=== PATIENT | male | born 1985 | race Caucasian/White ===

== ENCOUNTER 2020-05-16 03:46 | Emergency (ER) | payer BC, MEDICAID ==
[~2020-05-16] VITALS: Ht 182.9 cm; Wt 86.4 kg
[2020-05-16] MEDS ORDERED: ceFAZolin 1GM/D5W- ADD-VANTAGE 50 ML IV ONE (03:55)
[2020-05-16] MEDS ORDERED: TETanus/Pertussis (Acell)/Diphther VAC/PF (Tdap-Adult) 0.5ml syringe IMVAC ONE (03:55)
[2020-05-16] MEDS ORDERED: NO HOME MEDS (04:06)
[2020-05-16] MEDS: LIDOcaine 1% W/epiNEPHrine 1:200,000 10ml vial IJ STA ×2 (04:38→05:30)
[2020-05-16] MEDS ORDERED: morphine 4 MG/ML inj SYRINge IV ONE (04:50)
[2020-05-16 05:02] LABS: BASOPHILS # (AUTO) 0.1 X10'3 (0-0.2); BASOPHILS % (AUTO) 0.6 % (0-1); EOSINOPHILS # (AUTO) 0.3 X10'3 (0-0.9); EOSINOPHILS % (AUTO) 2.6 % (0-6); HEMATOCRIT 43.7 % (42.0-52.0); HEMOGLOBIN 14.6 g/dl (14.0-17.9); LYMPHOCYTES # (AUTO) 2.7 X10'3 (1.1-4.8); LYMPHOCYTES % (AUTO) 27.5 % (21-51); MEAN CORPUSCULAR HEMOGLOBIN 31.4 PG (27.0-31.0); MEAN CORPUSCULAR HGB CONC 33.4 g/dL (33.0-36.5); MEAN CORPUSCULAR VOLUME 94.2 FL (78-98); MONOCYTES # (AUTO) 0.8 X10'3 (0-0.9); MONOCYTES % (AUTO) 8.4 % (2-12); NEUTROPHILS % (AUTO) 60.9 % (42-75); PLATELET COUNT 204 X10'3 (140-440); RED BLOOD COUNT 4.64 X10'6 (4.70-6.10); RED CELL DISTRIBUTION WIDTH 13.4 % (11.5-14.5); WHITE BLOOD COUNT 9.9 X10'3 (4.5-11.0)
[2020-05-16 05:13] LABS: ALANINE AMINOTRANSFERASE 52 U/L (12-78); ALBUMIN 3.7 G/DL (3.4-5.0); ALBUMIN/GLOBULIN RATIO 1.1 (1.1-1.5); ALKALINE PHOSPHATASE 43 IU/L (46-116); ANION GAP 13 (8-16); ASPARTATE AMINO TRANSFERASE 30 U/L (10-37); BILIRUBIN,TOTAL 0.7 MG/DL (0.1-1.0); BLOOD UREA NITROGEN 13 MG/DL (7-18); BUN/CREATININE RATIO 13.5 (5.4-32.0); CALCIUM 8.8 MG/DL (8.5-10.1); CHLORIDE 106 MMOL/L (99-107); CREATININE 0.96 MG/DL (0.60-1.10); GLUCOSE 97 MG/DL (70-104); POTASSIUM 3.2 MMOL/L (3.5-5.1); SODIUM 141 MMOL/L (135-145); eGFR > 90 ML/MIN
[2020-05-16] MEDS ORDERED: potassium Cl 20mEq in NS 1,000 ML IV SCH (05:19)
[2020-05-16] MEDS ORDERED: morphine 2 MG/ML inj. syringe IV PRN ×2 (05:20)
[2020-05-16] MEDS ORDERED: mag hydrox/Alum hydrox/simeth 30ml oral suspension PO PRN (05:20)
[2020-05-16] MEDS ORDERED: magnesium hydroxide 30ml (MOM) UD suspension PO PRN (05:20)
[2020-05-16] MEDS ORDERED: acetaminophen 325mg tablet PO PRN (05:20)
[2020-05-16] MEDS ORDERED: ondansetron/PF 4mg/2ml inj IV PRN (05:20)
--- NOTE | 2020-05-16 05:30 | NUR ---
Dr PATRICIA AT BEDSIDE , TO SEE PATIENT . LACERATION SET UP AT BEDSIDE REQUESTED WITH 3 BOTTLES OF LIDOCAINE ORDERED . 2000 ML OF NS USED TO IRRIAGTED WOUND BY DR PATRICIA HIMSELF AND ADDITIONAL DRERSSING SUPPLIES AT BEDSIDE . PT STATED HE WAS A LITTLE AXIOUS AND DR PATRICIA STATED PT COULD HAVE 1 MG ATIVAN IV . RADIOED CHARGE NURSE TO PLACE ORDER NAD BRING TO BEDSIDE I WAS ASSITING WITH WOUND IRRIAGTION AND SUTURING AT BEDSIDE
[2020-05-16] MEDS ORDERED: LIDOcaine 1% W/epiNEPHrine 1:200,000 10ml vial IJ STA (05:42)
[2020-05-16] MEDS ORDERED: LORazepam 2 mg/ml vial IV ONE (05:55)
--- NOTE | 2020-05-16 05:57 | NUR ---
PT WAS MEDICATED WITH ATIVAN 1MG IV FOR AXIOUS . SEEMS TO BE TOLERATING SUTRING WITH MINIMAL DISCOMFORT , IV ABX ANCEF STARTED , PT WILL NOT BE GOING TO THE OR , HE IS HAVING THE REPAIR AT [facility] PER DR PATRICIA
--- NOTE | 2020-05-16 06:25 | NUR ---
CLARIFIED WITH DR PATRICIA ABOUT POTASSIUM AND REMAINING MED ORDERS AND DR PATRICIA STATED THAT PT WILL NOT BE ADMITTED AND WILL NOT NEED TO TAKE THE REMAINING MEDICATION ORDER HE WILL NOT BE HOSPITALIZED . MEDICATION NON ADMID .
[2020-05-16] MEDS ORDERED: IBUP-1985 PO (06:34)
[2020-05-16 06:51] VITALS: BP 131/78
[2020-05-16] MEDS ORDERED: ceFAZolin 1GM/D5W- ADD-VANTAGE 50 ML IV SCH (14:00)
== END 2020-05-16 06:55 | disposition home or self-care (01) ==
LOC: ER 03:48 → ED HOLD 05:19 → UNDOADMIN 05:19 → UNDODISIN 07:47
DX: S51.812A Laceration without foreign body of left forearm, initial encounter (principal); F17.200 Nicotine dependence, unspecified, uncomplicated; Z72.89 Other problems related to lifestyle; Z79.899 Other long term (current) drug therapy; X58.XXXA Exposure to other specified factors, initial encounter; Y93.89 Activity, other specified; Y92.89 Other specified places as the place of occurrence of the external cause; Y99.8 Other external cause status
CPT/HCPCS: 12034; 36415; 73090; 80053; 85025; 85610; 86885; 86900; 86901; 90471; 90715; 96365; 96375; 99284; J0690; J2060; J2270